=== PATIENT | female | born 1955 ===

== ENCOUNTER 2025-01-05 12:45 | Inpatient (IN) | payer OTHER ==
[~2025-01-05] VITALS: Ht 165.1 cm; Wt 60.3 kg
[2025-01-05] MEDS ORDERED: ZESTRIL10 M1 PO (13:31)
[2025-01-05] MEDS ORDERED: COZAAR100 MG PO (13:31)
[2025-01-05] MEDS ORDERED: SIMVASTATIN5 MG (13:32)
[2025-01-05] MEDS ORDERED: GLIMEPIRIDE4 MG (13:32)
[2025-01-05] MEDS ORDERED: FENOFIBRATE150 MG (13:33)
[2025-01-05] MEDS ORDERED: GLYXAMBI 25 MG1 EACH PO (13:33)
[2025-01-05] MEDS ORDERED: CARVEDILOL3.125 MG (13:34)
[2025-01-05 13:36] VITALS: BP 160/72
[2025-01-05 13:54] VITALS: BP 147/82
[2025-01-05 15:13] LABS: RH POSITIVE
[2025-01-18] MEDS ORDERED: POVIDONE-IODINE 118 ML BOTT TOP ONE (13:50)
[2025-01-18] MEDS ORDERED: CEFAZOLIN SODIUM 1,000 MG VIAL IV ONE (15:00)
[2025-01-18] MEDS ORDERED: GABAPENTIN 300 MG CAPSULE PO PRN (16:30)
[2025-01-18] MEDS ORDERED: ONDANSETRON HCL 2 MG/ML VIAL IV PRN (16:30)
[2025-01-18] MEDS ORDERED: KETOROLAC TROMETHAMINE 30 MG VIAL IV PRN (16:30)
[2025-01-18] MEDS ORDERED: DEXTROSE 50 % IN WATER 0.5 G/ML VIAL IV PRN (16:45)
[2025-01-18] MEDS ORDERED: INSULIN LISPRO 1,000 UNIT/10 ML UNITS SUBCUTANEO PRN (16:45)
[2025-01-18] MEDS ORDERED: RINGERS SOLUTION,LACTATED 1,000 ML IV SCH (16:45)
[2025-01-18] MEDS ORDERED: CEFAZOLIN SODIUM 1,000 MG VIAL IV SCH (18:00)
[2025-01-18] MEDS ORDERED: CEFAZOLIN SODIUM 1,000 MG VIAL ONE (18:30)
[2025-01-18 19:53] LABS: BASO % 0.3 % (0.1-1.2); EOS # 0.12 (0.04-0.54); HEMATOCRIT 33.6 % (34.1-44.9); HEMOGLOBIN 11.3 g/dL (11.2-15.7); LYMPH % 20.6 % (19.3-53.1); MEAN CORPUSCULAR HEMOGLOBIN 28.6 pg (25.6-32.2); MONO # 0.55 (0.24-0.82); MONO % 4.7 % (4.7-12.5); NEUT # 8.51 (1.56-6.13); NEUT % 73.1 % (34.0-71.1); PLATELET COUNT 255 K/uL (163-369); RED BLOOD COUNT 3.95 M/uL (3.93-5.22); RED CELL DISTRIBUTION WIDTH 12.8 % (11.6-14.4)
[2025-01-18 20:09] VITALS: BP 160/72
[2025-01-18] MEDS ORDERED: ENALAPRILAT DIHYDRATE 1.25 MG/ML VIAL IV STA (20:23)
[2025-01-18 22:38] VITALS: BP 107/63
[2025-01-19 00:02] VITALS: BP 103/62
[2025-01-19 05:00] VITALS: BP 97/59
[2025-01-19] MEDS ORDERED: IBU800 MG PO (06:59)
[2025-01-19] MEDS ORDERED: NEURONTIN300 MG PO (06:59)
[2025-01-19] MEDS ORDERED: CIPRO500 MG PO (07:00)
[2025-01-19 08:47] VITALS: BP 123/72
[2025-01-19] MEDS ORDERED: LISINOPRIL 10 MG TABLET PO SCH (09:00)
[2025-01-19] MEDS ORDERED: CARVEDILOL 3.125 MG TABLET PO SCH (09:00)
[2025-01-19] MEDS ORDERED: ENOXAPARIN SODIUM 40 MG/0.4 ML SYRINGE SUBCUTANEO SCH (09:00)
[2025-01-19] MEDS ORDERED: LOSARTAN POTASSIUM 100 MG TABLET PO SCH (09:00)
[2025-01-19] MEDS ORDERED: FAMOtidine 20 MG TABLET PO SCH (09:00)
== END 2025-01-19 11:04 | disposition home or self-care (01) | DRG 743 ==
LOC: SURH 01-11 12:45 → O/R 01-18 08:00 → OB/GYN 01-18 17:54
PROVIDERS: ADMIT Obstetrics & Gynecology Gynecology; ATTEND Obstetrics & Gynecology Gynecology
PROC: 0USG7ZZ Reposition Vagina, Via Natural or Artificial Opening (ICD-10-PCS; 2025-01-18)
PROC: 0UT97ZZ Resection of Uterus, Via Natural or Artificial Opening (ICD-10-PCS; principal; 2025-01-18 10:30)
DX: D25.2 Subserosal leiomyoma of uterus (principal); N81.4 Uterovaginal prolapse, unspecified